=== PATIENT | male | born 1980 | race Caucasian/White ===

== ENCOUNTER 2016-08-20 15:53 | Emergency (ER) | payer SELFPAY ==
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
--- NOTE | 2016-08-20 16:31 | RAD ---
EXAM DESCRIPTION: XR KNEE 4 OR MORE VIEWS CLINICAL HISTORY: pain after hyperextension COMPARISON: None. IMPRESSION: Two views of the right knee show a comminuted fracture of the proximal tibia extending to involve the tibia plateau mainly at the level of the lateral tibial spine. No significant depression of the tibia plateau or incongruity of the articular surface is seen on plain film x-ray. There is mild separation of the major fracture fragments. Small suprapatella joint effusion or hemarthrosis is seen. Consider further evaluation with CT imaging. Electronically signed by: Ismael Holbrook MD 08/20/2016 16:30
--- NOTE | 2016-08-20 17:53 | CT ---
EXAM DESCRIPTION: CT LOWER EXTREMITY WITHOUT IV CONTRAST CLINICAL HISTORY: 36 y/o M, fracture of tibia, need to see if extends to joint COMPARISON: Right knee series obtained earlier same day. TECHNIQUE: CT of the right knee was performed with images extending from the femoral condyles inferiorly to the mid right tibial diaphysis. FINDINGS: Again seen is a comminuted Y-shaped fracture involving the proximal tibia including extension into both tibial plateaus and superiorly into the right knee joint space at midline. There is 3 or 4 mm displacement of the fracture anteriorly at the articular surface of the proximal tibia, 3 or 4 mm displacement at the lateral tibial cortex and 5 mm displacement at the base of the medial tibial plateau. No fibular fracture is identified period the distal femur is intact. There is no patellar fracture or dislocation. The moderate sized right knee lipohemarthrosis is present. IMPRESSION: Comminuted, slightly displaced proximal tibial fracture involving both tibial plateaus with intra-articular extension at midline. Electronically signed by: Rogelio Noonan DO 08/20/2016 17:51
[2016-08-21 10:27] VITALS: BP 128/76; TEMP 98.2; O2SAT 97
== END 2016-08-20 19:05 | disposition home or self-care (01) ==
LOC: ER 15:53
DX: S82.141A Displaced bicondylar fracture of right tibia, initial encounter for closed fracture (principal); Z87.891 Personal history of nicotine dependence; X58.XXXA Exposure to other specified factors, initial encounter

== ENCOUNTER 2016-09-18 09:12 | Emergency (ER) | payer SELFPAY ==
[2016-09-18 09:27] VITALS: TEMP 98.1
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
[2016-09-18] MEDS ORDERED: CLINDAMYCIN IV 600MG 600 MG in PREMIX BAG 1 BAG IVPB ONE (09:48)
[2016-09-18] MEDS ORDERED: levoFLOXacin 500 MG TAB PO ONE (09:48)
[2016-09-18] MEDS ORDERED: CLINDAMYCIN IV 600MG 50 ML IVPB ONE (10:14)
[2016-09-18] MEDS ORDERED: CHLORHEXIDINE GLUCONATE 4 % 15 ML UD TOP ONE (10:38)
[2016-09-18 10:55] VITALS: O2SAT 97
[2016-09-18 11:33] VITALS: BP 124/89
== END 2016-09-18 11:33 | disposition home or self-care (01) ==
LOC: ER 09:12
DX: T81.4XXA Infection following a procedure, initial encounter (principal); B99.9 Unspecified infectious disease; Z87.891 Personal history of nicotine dependence

== ENCOUNTER → 2017-10-09 | Outpatient (CLI) | payer OTHER ==
--- NOTE | 2017-10-09 16:21 | RAD ---
EXAM: Knee,Right 2 or More Views HISTORY: FX OF TIBIA PLATEAU COMPARISON: August 20, 2016 TECHNIQUE: Three radiographic views of knee FINDINGS: Interval surgical repair across fracture previously described in proximal tibia. External fixation plate and multiple fixation screws appear intact. Comminuted fracture line previously seen in the tibial metaphysis are now obscured. Unremarkable bony alignment in the knee joint. No new fracture nor dislocation is identified. Joint spaces are maintained. No suprapatellar effusion or other soft tissue abnormality. IMPRESSION: Interval surgical repair in proximal right tibia. Previously described comminuted fracture lines are now obscured. No new bony injury Electronically signed by: Emery Chavez MD 10/09/2017 4:20 PM CDT
== END ==
LOC: YCFC.O 15:23
DX: S82.101S Unspecified fracture of upper end of right tibia, sequela (principal)

== ENCOUNTER → 2017-10-14 | Outpatient (CLI) | payer OTHER | LOC: YCFC.O 12:10 | DX: T14.90XD Injury, unspecified, subsequent encounter (principal) ==

== ENCOUNTER → 2017-10-30 | Outpatient (CLI) | payer OTHER | END | disposition home or self-care (01) | LOC: YCFC.O 13:22 | DX: T81.4XXS Infection following a procedure, sequela (principal) ==